=== PATIENT | male | born 1970 ===

== ENCOUNTER 2018-10-24 12:40 | Emergency (ER) | payer OTHER ==
[~2018-10-24] VITALS: Ht 180.3 cm; Wt 149.7 kg
[2018-10-24] MEDS ORDERED: ASA81 MG (13:34)
[2018-10-24] MEDS ORDERED: DAFLONEX-XL 11300 MG (13:34)
[2018-10-24] MEDS ORDERED: HYDROCHLOROTHIA25 MG (13:35)
== END 2018-10-24 18:00 | disposition home or self-care (01) ==
LOC: ER 13:19
DX: R10.11 Right upper quadrant pain (principal)